=== PATIENT | female | born 1935 | race Caucasian/White ===

== ENCOUNTER 2019-12-19 08:43 | Day surgery (SDC) | payer MEDICARE ==
[~2019-12-19] VITALS: Ht 157.5 cm; Wt 66.8 kg
[2019-12-19 09:41] VITALS: BP 157/80
[2019-12-19] MEDS ORDERED: INSU100V8 SQ (09:51)
[2019-12-19] MEDS ORDERED: januvia PO (09:51)
[2019-12-19] MEDS ORDERED: [UNRECOGNIZED DRUG - REMARK] PO (09:51)
[2019-12-19] MEDS ORDERED: LACTATED RINGERS 1,000 ML IV SCH (10:00)
[2019-12-19] MEDS ORDERED: LIDOCAINE-MPF 2% ,5ML ONE (10:49)
[2019-12-19] MEDS ORDERED: PROPOFOL 10 MG/ML, 20ML ONE ×2 (10:49)
[2019-12-19] MEDS ORDERED: AMPICILLIN/SULBACTAM 3 GM in SODIUM CHLORIDE 0.9% 100 ML IV ONE (12:30)
== END 2019-12-19 14:50 | disposition home or self-care (01) ==
LOC: OUT 08:43
PROVIDERS: ATTEND Internal Medicine Geriatric Medicine
DX: K86.89 Other specified diseases of pancreas (principal); C25.0 Malignant neoplasm of head of pancreas; K29.60 Other gastritis without bleeding; E10.9 Type 1 diabetes mellitus without complications; R63.4 Abnormal weight loss; Z68.27 Body mass index [BMI] 27.0-27.9, adult; Z79.4 Long term (current) use of insulin; Z79.1 Long term (current) use of non-steroidal anti-inflammatories (NSAID); Z90.49 Acquired absence of other specified parts of digestive tract
CPT/HCPCS: 43239; 43242; 82962; 88172; 88173; 88177; 88305; 88307; 93005; J0295; J2704; J7120

== ENCOUNTER 2020-01-03 08:55 | Day surgery (SDC) | payer MEDICARE ==
[~2020-01-03] VITALS: Ht 154.9 cm; Wt 60.5 kg
[~2020-01-03 08:55] MED LIST: INSU100V8 SQ; [UNRECOGNIZED DRUG - REMARK] PO; januvia PO
[2020-01-03] MEDS ORDERED: LACTATED RINGERS 1,000 ML IV SCH (09:21)
[2020-01-03 09:22] VITALS: BP 149/81
[2020-01-03] MEDS ORDERED: ROCURONIUM 10 MG/ML,10ML ONE (11:40)
[2020-01-03] MEDS ORDERED: PROPOFOL 10 MG/ML, 20ML ONE (11:40)
[2020-01-03] MEDS ORDERED: ONDANSETRON 2MG/ML, 2ML ONE (11:40)
[2020-01-03] MEDS ORDERED: SUCCINYLCHOLINE 20 MG/ML, 10ML ONE (11:40)
[2020-01-03] MEDS ORDERED: LIDOCAINE PF 2%, 5ML ONE (11:40)
[2020-01-03] MEDS ORDERED: OMNIPAQUE 350 MG/ML, 50 ML BOTTLE ONE (12:46)
[2020-01-03] MEDS ORDERED: LABETALOL 5MG/ML, 20ML IV PRN (13:00)
[2020-01-03] MEDS ORDERED: ONDANSETRON 2MG/ML, 2ML IV PRN (13:00)
[2020-01-03] MEDS ORDERED: OXYcodone 5 MG/5 ML ORAL.SOL UDC PO PRN (13:00)
[2020-01-03] MEDS ORDERED: hydrALAzine 20 MG/ML, 1ML IV PRN (13:00)
[2020-01-03] MEDS ORDERED: FENTANYL PF 100 MCG/2ML IV PRN (13:00)
[2020-01-03] MEDS ORDERED: ACETAMINOPHEN 325 MG TABLET PO PRN (13:00)
[2020-01-03] MEDS ORDERED: LABETALOL 5MG/ML, 20ML ONE (13:12)
[2020-01-03] MEDS ORDERED: ACETAMINOPHEN 650 MG/20.3 ML UDC ONE (13:21)
[2020-01-03] MEDS ORDERED: OXYcodone 5 MG/5 ML ORAL.SOL UDC ONE (14:30)
== END 2020-01-03 15:30 | disposition home or self-care (01) ==
LOC: OUT 08:55
PROVIDERS: ATTEND Internal Medicine Geriatric Medicine
DX: K83.1 Obstruction of bile duct (principal); C25.9 Malignant neoplasm of pancreas, unspecified; E10.9 Type 1 diabetes mellitus without complications; I10 Essential (primary) hypertension; R63.4 Abnormal weight loss; Z68.27 Body mass index [BMI] 27.0-27.9, adult; Z79.4 Long term (current) use of insulin; Z90.49 Acquired absence of other specified parts of digestive tract
CPT/HCPCS: 43274; 74328; 82962; C1769; C1894; C2625; J0330; J2405; J2704; J7120; Q9967

== ENCOUNTER → 2020-01-12 | Outpatient (CLI) | payer MEDICARE ==
[~2020-01-12] MED LIST changes: +OMNIPAQUE 350 MG/ML, 100ML BOTTLE ONE
== END | disposition home or self-care (01) ==
LOC: RAD 08:21
PROVIDERS: ATTEND Internal Medicine Hematology & Oncology
DX: C25.0 Malignant neoplasm of head of pancreas (principal); N28.1 Cyst of kidney, acquired; K57.10 Diverticulosis of small intestine without perforation or abscess without bleeding; K42.9 Umbilical hernia without obstruction or gangrene; N83.201 Unspecified ovarian cyst, right side; Z90.49 Acquired absence of other specified parts of digestive tract
CPT/HCPCS: 71260; 74177; Q9967

== ENCOUNTER 2020-01-15 15:26 | Inpatient (IN) | payer MEDICARE ==
[~2020-01-15] VITALS: Ht 154.9 cm; Wt 62.3 kg
[~2020-01-15 15:26] MED LIST changes: -OMNIPAQUE 350 MG/ML, 100ML BOTTLE ONE
[2020-01-15 16:45] LABS: MICROSCOPIC INDICATED
[2020-01-15 16:54] LABS: AMPHETAMINE SCREEN, URINE Negative (Negative); BARBITURATE SCREEN, URINE Negative (Negative); BENZODIAZEPINE SCREEN, URINE Negative (Negative); CANNABINOID SCREEN, URINE Positive (Negative); COCAINE SCREEN, URINE Negative (Negative); METHADONE SCREEN, URINE Negative (Negative); OPIATE SCREEN, URINE Positive (Negative)
[2020-01-15 16:58] LABS: INTERNATIONAL NORMALIZED RATIO 1.15 (0.93-1.1); PROTHROMBIN TIME 12.2 Seconds (9.6-11.5)
[2020-01-15 16:59] LABS: MEAN CORPUSCULAR HEMOGLOBIN 29.8 pg (27.0-34.8); MEAN CORPUSCULAR HGB CONC 32.5 g/dL (32.4-35.8); MEAN PLATELET VOLUME 8.8 fL (7.4-10.4); PLATELET COUNT 476 x10^3/uL (130-400); RED BLOOD COUNT 5.15 x10^6/uL (3.82-5.3); RED CELL DISTRIBUTION WIDTH 13.2 % (9.6-15.2)
[2020-01-15] MEDS ORDERED: SODIUM CHLORIDE FLUSH 10ML SYR IVF ONE (17:00)
[2020-01-15 17:01] LABS: ALBUMIN 3.2 g/dL (3.4-5.0); ANION GAP 11 mmol/L (5-15); CHLORIDE 95 mmol/L (98-107); SALICYLATE LEVEL 1.8 mg/dL (2.8-20.0)
[2020-01-15 17:07] LABS: ALANINE AMINOTRANSFERASE 96 U/L (12-78); ALKALINE PHOSPHATASE 395 U/L (45-117); BILIRUBIN,TOTAL 1.5 mg/dL (0.2-1.0); CALCIUM 13.3 mg/dL (8.5-10.1); CREATININE 0.92 mg/dL (0.55-1.02); TOTAL PROTEIN 7.4 g/dL (6.4-8.2); TROPONIN I 0.054 ng/mL (0.000-0.045)
[2020-01-15 17:22] LABS: BASOPHILS # (AUTO) 0.03 x10^3/uL (0-0.1); BASOPHILS % (AUTO) 0 % (0-1); EOSINOPHILS # (AUTO) 0.03 x10^3/uL (0-0.4); EOSINOPHILS % (AUTO) 0 % (1-7); LYMPHOCYTES # (AUTO) 1.47 x10^3/uL (1-3.4); LYMPHOCYTES % (AUTO) 13 % (22-44); MD MORPH REVIEW ONLY; MONOCYTES # (AUTO) 0.55 x10^3/uL (0.2-0.8); MONOCYTES % (AUTO) 5 % (2-9); NEUTROPHILS # (AUTO) 9.29 x10^3/uL (1.8-6.8); NEUTROPHILS % (AUTO) 82 % (42-75)
[2020-01-15 17:23] LABS: <PLATELET ESTIMATE> INCREASED; <RBC MORPHOLOGY> NORMAL; LARGE PLATELETS 1+
[2020-01-15] MEDS ORDERED: APIX2.5T PO (17:23)
[2020-01-15] MEDS ORDERED: SODIUM CHLORIDE 0.9% 1,000ML IVBOLUS ONE (17:30)
[2020-01-15] MEDS ORDERED: SODIUM CHLORIDE 0.9% 1,000 ML IV ONE (17:30)
[2020-01-15] MEDS ORDERED: POTASSIUM CHLORIDE 20 MEQ PACKET PO ONE (17:30)
[2020-01-15] MEDS ORDERED: ASPIRIN 81 MG TABLET CHEW ONE (17:43)
[2020-01-15] MEDS ORDERED: ASPIRIN 81 MG TABLET CHEW PO ONE (18:00)
[2020-01-15] MEDS: INSULIN GLARGINE 100 UNITS/ML, PEN SQ-INSULIN SCH ×2 (20:00→21:00)
[2020-01-15] MEDS ORDERED: ACETAMINOPHEN 325 MG TABLET PO PRN (20:00)
[2020-01-15] MEDS ORDERED: POLYETHYLENE GLYCOL 17 GM PACKET PO PRN (20:00)
[2020-01-15] MEDS ORDERED: BISACODYL 10 MG SUPP PR PRN (20:00)
[2020-01-15] MEDS ORDERED: POTASSIUM CHLORIDE 20 MEQ TAB.ER.PRT PO ONE (20:00)
[2020-01-15] MEDS ORDERED: ONDANSETRON ODT 4 MG PO PRN (20:00)
[2020-01-15] MEDS ORDERED: morphine SULFATE 10 MG/ML, 1ML IVPush PRN (20:00)
[2020-01-15 20:34] LABS: FREE T4 (FREE THYROXINE) 1.2 ng/dL (0.76-1.46)
[2020-01-15 21:05] VITALS: BP 143/71
[2020-01-15] MEDS ORDERED: ONDANSETRON 2MG/ML, 2ML ONE (22:21)
[2020-01-15] MEDS ORDERED: LISI-420 PO (22:28)
[2020-01-15] MEDS ORDERED: APIX5TAB PO (22:28)
[2020-01-15] MEDS ORDERED: MORP-29 PO (22:28)
[2020-01-15] MEDS: NS + 20MEQ KCL 1,000 ML IV SCH (22:44)
[2020-01-15] MEDS: APIXABAN 5 MG TABLET PO SCH (22:44)
[2020-01-15 23:06] LABS: TROPONIN I 0.125 ng/mL (0.000-0.045)
[2020-01-16 01:44] VITALS: BP 130/80
[2020-01-16 04:45] LABS: BASOPHILS # (AUTO) 0.03 x10^3/uL (0-0.1); BASOPHILS % (AUTO) 0 % (0-1); EOSINOPHILS # (AUTO) 0.07 x10^3/uL (0-0.4); EOSINOPHILS % (AUTO) 1 % (1-7); LYMPHOCYTES # (AUTO) 1.88 x10^3/uL (1-3.4); LYMPHOCYTES % (AUTO) 20 % (22-44); MD NO; MEAN CORPUSCULAR HEMOGLOBIN 30.6 pg (27.0-34.8); MEAN CORPUSCULAR HGB CONC 32.7 g/dL (32.4-35.8); MEAN CORPUSCULAR VOLUME 93.4 fL (80-100); MEAN PLATELET VOLUME 8.8 fL (7.4-10.4); MONOCYTES % (AUTO) 7 % (2-9); NEUTROPHILS % (AUTO) 72 % (42-75); PLATELET COUNT 350 x10^3/uL (130-400); RED BLOOD COUNT 3.99 x10^6/uL (3.82-5.3); RED CELL DISTRIBUTION WIDTH 13.4 % (9.6-15.2)
[2020-01-16 04:50] LABS: ALANINE AMINOTRANSFERASE 62 U/L (12-78); ALBUMIN 2.1 g/dL (3.4-5.0); ANION GAP 11 mmol/L (5-15); CHLORIDE 105 mmol/L (98-107); CREATININE 0.79 mg/dL (0.55-1.02)
[2020-01-16 04:55] LABS: ALKALINE PHOSPHATASE 253 U/L (45-117); TROPONIN I 0.105 ng/mL (0.000-0.045)
[2020-01-16 07:24] VITALS: BP 149/79
[2020-01-16] MEDS: NS + 20MEQ KCL 1,000 ML IV SCH ×2 (09:39→21:40)
[2020-01-16] MEDS: APIXABAN 5 MG TABLET PO SCH ×2 (09:39→21:04)
[2020-01-16] MEDS: SENNA/DOCUSATE TABLET PO SCH (09:40)
[2020-01-16] MEDS ORDERED: ZOLEDRONIC ACID 0.8 MG/ML VIAL IVPB ONE (11:00)
[2020-01-16] MEDS ORDERED: ZOLEDRONIC ACID 4 MG in SODIUM CHLORIDE 0.9% 100 ML IVPB ONE (11:30)
[2020-01-16] MEDS: CALCITONIN NASAL 200 UNITS/0.09ML, 3.7ML NAS SCH (12:15)
[2020-01-16] MEDS ORDERED: POLYETHYLENE GLYCOL 17 GM PACKET PO PRN (13:30)
[2020-01-16 14:47] LABS: TROPONIN I 0.079 ng/mL (0.000-0.045)
[2020-01-16 16:23] VITALS: BP 156/85
[2020-01-16 19:10] VITALS: BP 159/89
[2020-01-16] MEDS: INSULIN GLARGINE 100 UNITS/ML, PEN SQ-INSULIN SCH (21:40)
[2020-01-17 00:40] VITALS: BP 136/74
[2020-01-17] MEDS: ASPIRIN 81 MG TABLET EC PO SCH (05:50)
[2020-01-17 06:08] LABS: ALANINE AMINOTRANSFERASE 55 U/L (12-78); ALBUMIN 2.1 g/dL (3.4-5.0); ANION GAP 6 mmol/L (5-15); CALCIUM 10.5 mg/dL (8.5-10.1); CHLORIDE 110 mmol/L (98-107); CREATININE 0.65 mg/dL (0.55-1.02)
[2020-01-17 06:10] LABS: ALKALINE PHOSPHATASE 236 U/L (45-117); BILIRUBIN,TOTAL 0.8 mg/dL (0.2-1.0); TOTAL PROTEIN 5.1 g/dL (6.4-8.2)
[2020-01-17 06:19] LABS: BASOPHILS # (AUTO) 0.02 x10^3/uL (0-0.1); BASOPHILS % (AUTO) 0 % (0-1); EOSINOPHILS # (AUTO) 0.09 x10^3/uL (0-0.4); EOSINOPHILS % (AUTO) 1 % (1-7); LYMPHOCYTES # (AUTO) 1.34 x10^3/uL (1-3.4); LYMPHOCYTES % (AUTO) 14 % (22-44); MD NO; MEAN CORPUSCULAR HEMOGLOBIN 29.7 pg (27.0-34.8); MEAN CORPUSCULAR HGB CONC 32.2 g/dL (32.4-35.8); MEAN CORPUSCULAR VOLUME 92.3 fL (80-100); MEAN PLATELET VOLUME 8.1 fL (7.4-10.4); MONOCYTES # (AUTO) 0.34 x10^3/uL (0.2-0.8); MONOCYTES % (AUTO) 4 % (2-9); NEUTROPHILS # (AUTO) 7.55 x10^3/uL (1.8-6.8); NEUTROPHILS % (AUTO) 81 % (42-75); PLATELET COUNT 343 x10^3/uL (130-400); RED BLOOD COUNT 3.98 x10^6/uL (3.82-5.3); RED CELL DISTRIBUTION WIDTH 13.3 % (9.6-15.2)
[2020-01-17] MEDS: NS + 20MEQ KCL 1,000 ML IV SCH ×2 (07:16→18:20)
[2020-01-17] MEDS: APIXABAN 5 MG TABLET PO SCH ×2 (08:04→22:23)
[2020-01-17] MEDS: CALCITONIN NASAL 200 UNITS/0.09ML, 3.7ML NAS SCH (08:05)
[2020-01-17] MEDS: SENNA/DOCUSATE TABLET PO SCH (08:05)
[2020-01-17] MEDS ORDERED: REGADENOSON 0.4 MG/5 ML SYRINGE ONE (08:21)
[2020-01-17 08:33] VITALS: BP 146/82
[2020-01-17] MEDS ORDERED: LIDOCAINE-MPF 1%, 5ML ONE (10:14)
[2020-01-17 14:20] VITALS: BP 156/79
[2020-01-17 19:16] VITALS: BP 153/75
[2020-01-17] MEDS: INSULIN GLARGINE 100 UNITS/ML, PEN SQ-INSULIN SCH (22:24)
[2020-01-18 02:46] VITALS: BP 144/70
[2020-01-18] MEDS: NS + 20MEQ KCL 1,000 ML IV SCH ×2 (04:58→14:02)
[2020-01-18] MEDS: ASPIRIN 81 MG TABLET EC PO SCH (05:53)
[2020-01-18 06:19] LABS: ALBUMIN 2.1 g/dL (3.4-5.0); ANION GAP 6 mmol/L (5-15); CALCIUM 9.3 mg/dL (8.5-10.1); CHLORIDE 111 mmol/L (98-107)
[2020-01-18 06:22] LABS: ALANINE AMINOTRANSFERASE 93 U/L (12-78); ALKALINE PHOSPHATASE 241 U/L (45-117); BILIRUBIN,TOTAL 0.7 mg/dL (0.2-1.0); CREATININE 0.48 mg/dL (0.55-1.02); TOTAL PROTEIN 5.1 g/dL (6.4-8.2)
[2020-01-18 06:44] VITALS: BP 149/84
[2020-01-18] MEDS ORDERED: DEXTROSE 50%, 50ML SYRINGE ONE (06:53)
[2020-01-18] MEDS ORDERED: GLUCAGON 1 MG IM PRN (07:00)
[2020-01-18] MEDS ORDERED: D5%-0.45% NACL 1,000 ML IV SCH ×2 (07:00→07:08)
[2020-01-18] MEDS ORDERED: DEXTROSE 50%, 50ML SYRINGE IVPush PRN (07:00)
[2020-01-18] MEDS ORDERED: DEXTROSE 4 GM TAB.CHEW PO PRN (07:00)
[2020-01-18] MEDS ORDERED: DEXTROSE 50%, 50ML SYRINGE IVPush ONE (07:00)
[2020-01-18] MEDS: APIXABAN 5 MG TABLET PO SCH ×2 (08:16→20:33)
[2020-01-18] MEDS: CALCITONIN NASAL 200 UNITS/0.09ML, 3.7ML NAS SCH (08:17)
[2020-01-18] MEDS: SODIUM CHLORIDE FLUSH 10ML SYR IVF SCH ×2 (08:18→20:33)
[2020-01-18] MEDS: SENNA/DOCUSATE TABLET PO SCH (08:20)
[2020-01-18] MEDS: INSULIN LISPRO 100 UNITS/ML, PEN SQ-INSULIN SCH ×3 (11:00→20:35)
[2020-01-18 13:14] VITALS: BP 124/74
[2020-01-18] MEDS ORDERED: LIDOCAINE 1%, 10ML ONE (14:32)
[2020-01-18 19:40] VITALS: BP 136/78
[2020-01-18] MEDS ORDERED: ATORVASTATIN 40 MG TABLET PO SCH (21:00)
[2020-01-19 01:21] VITALS: BP 141/72
[2020-01-19 06:00] VITALS: BP 151/83
[2020-01-19] MEDS ORDERED: METOPROLOL SUCCINATE 25 MG TAB.ER.24H PO SCH (06:00)
[2020-01-19] MEDS: ASPIRIN 81 MG TABLET EC PO SCH (06:02)
[2020-01-19 06:39] VITALS: BP 145/78
[2020-01-19] MEDS: INSULIN LISPRO 100 UNITS/ML, PEN SQ-INSULIN SCH ×2 (07:50→12:50)
[2020-01-19] MEDS: SODIUM CHLORIDE FLUSH 10ML SYR IVF SCH (07:51)
[2020-01-19] MEDS: SENNA/DOCUSATE TABLET PO SCH (07:52)
[2020-01-19] MEDS ORDERED: APIXABAN 5 MG TABLET PO SCH (09:00)
[2020-01-19 12:46] VITALS: BP 154/87
[2020-01-19] MEDS ORDERED: ACET325T26 PO (12:49)
[2020-01-19] MEDS ORDERED: ATOR40TA78 PO (12:49)
[2020-01-19] MEDS ORDERED: APIX5TAB PO (12:49)
[2020-01-19] MEDS ORDERED: LISI5TAB7 PO (12:49)
[2020-01-19] MEDS ORDERED: METO25TA91 PO (12:49)
[2020-01-19] MEDS ORDERED: ASPI81TA45 PO (14:59)
[2020-01-20] MEDS ORDERED: LISINOPRIL 5 MG TABLET PO SCH (09:00)
== END 2020-01-19 17:34 | disposition home health service (06) | DRG 92 ==
LOC: ED 16:38 → EDIP 19:42 → 4NW 20:39 → 5SO 01-16 14:31
PROVIDERS: ADMIT Internal Medicine; ATTEND Internal Medicine
PROC: 0GBH3ZX Excision of Right Thyroid Gland Lobe, Percutaneous Approach, Diagnostic (ICD-10-PCS; principal; 2020-01-18)
DX: G92 Toxic encephalopathy (principal); C25.9 Malignant neoplasm of pancreas, unspecified; E87.1 Hypo-osmolality and hyponatremia; E87.6 Hypokalemia; E21.3 Hyperparathyroidism, unspecified; I10 Essential (primary) hypertension; K59.00 Constipation, unspecified; E04.1 Nontoxic single thyroid nodule; I25.10 Atherosclerotic heart disease of native coronary artery without angina pectoris; E11.649 Type 2 diabetes mellitus with hypoglycemia without coma; Z79.4 Long term (current) use of insulin; Z86.711 Personal history of pulmonary embolism; Z85.07 Personal history of malignant neoplasm of pancreas; Z90.49 Acquired absence of other specified parts of digestive tract; I25.2 Old myocardial infarction
CPT/HCPCS: 10005; 36415; 60100; 70450; 71045; 71260; 74177; 76536; 76700; 78452; 80053; 80307; 81001; 82140; 82306; 82330; 82962; 83036; 83605; 83735; 83970; 84439; 84443; 84481; 84484; 85025; 85610; 88173; 93005; 93017; 93306; 96360; 96361; G0378; J2785; J3480; J3489; Q9967; A9502; J1815; J7030